=== PATIENT | male | born 1960 | race Hispanic/Latino ===

== ENCOUNTER 2023-07-31 07:11 | Day surgery (SDC) | payer BC ==
[2023-07-30 15:42] VITALS: BP 145/87; PULSE 99; RESP 18
[2023-07-30 16:01] LABS: BASOPHILS # (AUTO) 0.03 K/uL (0.00-0.20); BASOPHILS % (AUTO) 0.3 % (0.0-5.0); EOSINOPHILS # (AUTO) 0.19 K/uL (0.00-0.70); EOSINOPHILS % (AUTO) 1.8 % (0.0-8.0); HEMATOCRIT 46.5 % (42-54); IMMATURE GRANULOCYTE ABSOLUTE 0.04 K/uL (0-1); LYMPHOCYTES % (AUTO) 29.1 % (21.0-51.0); MEAN CORPUSCULAR HEMOGLOBIN 29.5 pg (27.0-33.0); MEAN CORPUSCULAR HGB CONC 32.3 g/dL (32.0-36.0); MEAN CORPUSCULAR VOLUME 91.5 fL (79-99); MONOCYTES # (AUTO) 0.9 K/uL (0.1-1.0); MONOCYTES % (AUTO) 8.5 % (3.0-13.0); NEUTROPHILS # (AUTO) 6.2 K/uL (1.8-7.7); NEUTROPHILS % (AUTO) 59.9 % (40.0-77.0); PLATELET COUNT (AUTO) 314 K/uL (130-400); RED BLOOD CELL COUNT(AUTO) 5.08 MIL/uL (4.50-6.20); RED CELL DISTRIBUTION WIDTH 13.3 % (11.0-15.5); WHITE BLOOD COUNT (AUTO) 10.3 K/uL (4.8-10.8)
[2023-07-30 16:27] LABS: ALBUMIN 4.2 g/dL (3.5-5.0); CREATININE 0.8 mg/dL (0.5-1.5); POTASSIUM 3.5 mmol/L (3.5-5.1)
[~2023-07-31] VITALS: Ht 175.3 cm; Wt 106.7 kg
[2023-07-31] VITALS (17 sets, daily range): BP systolic 128–149; BP diastolic 76–88; PULSE 88–101; RESP 15–18
[~2023-07-31 07:11] MED LIST: AEC81 PO; ATOR40TA71 PO; EMPA10TA PO; ENAL-87 PO; HYDR12.54 PO; METF-446 PO; PIOG45TA64 PO
[2023-07-31] MEDS ORDERED: CEFAZOLIN SODIUM 2 GM VIAL ONE (07:19)
[2023-07-31] MEDS ORDERED: 0.9%NACL 1000ML 1,000 ML IV ONE (07:19)
[2023-07-31] MEDS ORDERED: ROPIVACAINE 0.5% 5MG/ML 30ML IJ ONE (09:04)
[2023-07-31] MEDS ORDERED: DEXAMETHASONE SOD PHOSPHATE 10MG/ML 1ML VIAL ONE (09:05)
[2023-07-31] MEDS ORDERED: KETAMINE 50MG/ML SYRINGE 50 MG/ML DISP.SYRIN ONE (09:06)
[2023-07-31] MEDS ORDERED: LIDOCAINE PF 100MG/5ML (2%) SYRINGE 5ML ONE (09:06)
[2023-07-31] MEDS ORDERED: ROCURONIUM 10MG/1ML SYR 10 MG/ML ML ONE (09:07)
[2023-07-31] MEDS ORDERED: PROPOFOL 10 MG/ML 20ML VIAL IV ONE (11:06)
[2023-07-31] MEDS ORDERED: MIDAZOLAM HCL 1 MG/ML 2ML VIAL ONE (11:07)
[2023-07-31] MEDS ORDERED: 0.9%NACL 10ML VIAL ONE (11:35)
[2023-07-31] MEDS ORDERED: PHENYLEPHRINE HCL 10 MG/ML 1ML VIAL IV ONE (11:35)
[2023-07-31] MEDS ORDERED: FENTANYL CITRATE PF 50 MCG/1 ML 2ML VIAL ONE ×2 (11:40→13:37)
[2023-07-31] MEDS ORDERED: EPHEDRINE SULFATE 50 MG/ML AMPULE ONE (11:58)
[2023-07-31] MEDS ORDERED: OCTYL 2-CYANOACRYLATE 1 EACH TP ONE (13:02)
[2023-07-31] MEDS ORDERED: NEOSTIGMINE 5MG/5ML SYR IV ONE (13:09)
[2023-07-31] MEDS ORDERED: GLYCOPYRROLATE 1 MG/5 ML SYRINGE ONE (13:09)
[2023-07-31] MEDS ORDERED: ONDANSETRON 4MG INJ ONE (13:09)
[2023-07-31] MEDS ORDERED: KETOROLAC 30MG VIAL (30MG/ML) ONE (13:10)
[2023-07-31] MEDS ORDERED: HYDR-4060 PO (13:26)
== END 2023-07-31 15:30 | disposition home or self-care (01) ==
LOC: DAH 07:11
PROVIDERS: ATTEND Student in an Organized Health Care Education/Training Program
DX: S82.031A Displaced transverse fracture of right patella, initial encounter for closed fracture (principal); S82.021A Displaced longitudinal fracture of right patella, initial encounter for closed fracture; I10 Essential (primary) hypertension; E78.5 Hyperlipidemia, unspecified; E66.9 Obesity, unspecified; E11.9 Type 2 diabetes mellitus without complications; Z82.49 Family history of ischemic heart disease and other diseases of the circulatory system; Z83.3 Family history of diabetes mellitus; Z87.891 Personal history of nicotine dependence; Z98.890 Other specified postprocedural states; Z79.82 Long term (current) use of aspirin; Z79.84 Long term (current) use of oral hypoglycemic drugs; Z79.01 Long term (current) use of anticoagulants; Z79.899 Other long term (current) drug therapy; W18.39XA Other fall on same level, initial encounter; Y93.89 Activity, other specified; Y92.89 Other specified places as the place of occurrence of the external cause; Y99.8 Other external cause status; Z68.34 Body mass index [BMI] 34.0-34.9, adult
CPT/HCPCS: 82040; 80048; 85025; 84134; 86140; 36415; 27524; 64447; 82948 ×2; 73560; A4663; C1713; A4649 ×2; J3010 ×2; J3490 ×3; J1100; J2710; J7030; J2001; J2250; J2704; J2405; J1885; J2795; J2371; J0690; A4930 ×2; A6255; A4215; A4223; A4222; A4221